=== PATIENT | male | born 1965 | race Hispanic/Latino ===

== ENCOUNTER 2024-04-11 13:24 | Inpatient (IN) | payer BC, OTHER, SELFPAY ==
[2024-04-11 14:33] LABS: #Basophils 0.04 10x3/uL (0.0-0.2); %Basophils 0.4 % (0.0-1.0); %Eosinophils 0.8 % (0.0-10.0); %Lymphocytes 15.2 % (21.0-51.0); %Monocytes 5.3 % (0.0-10.0); %Neutrophils 77.8 % (42.0-75.0); Hematocrit 46.1 % (42.0-52.0); Hemoglobin 15.7 g/dL (14.0-18.0); Mean Corpuscular HGB CONC 34.1 g/dL (32.0-36.0); Mean Corpuscular Hemoglobin 29.7 pg (27.0-31.0); Mean Corpuscular Volume 87.3 fL (78.0-98.0); Platelet Count 219 10x3/uL (130-400); Red Blood Cell (RBC) Count 5.28 mill/uL (4.70-6.10)
[2024-04-11 14:50] LABS: ALT (SGPT) 28 U/L (8-55); AST (SGOT) 22 U/L (5-34); Albumin 3.7 g/dL (3.5-5.0); Alkaline Phosphatase 72 U/L (40-110); Anion Gap 16 mmol/L (10-20); BUN (Urea Nitrogen) 24 mg/dL (8.4-25.7); Bilirubin, Total 0.7 mg/dL (0.2-1.2); Calc. Creatinine Clearance 0 mL/min (70-130); Calcium 9.3 mg/dL (7.8-10.44); Carbon Dioxide 25 mmol/L (22-29); Chloride 107 mmol/L (98-107); Estimated GFR 104; Glucose 170 mg/dL (70-105); Potassium 3.8 mmol/L (3.5-5.1); Protein, Total 6.7 g/dL (6.0-8.3); Sodium 144 mmol/L (136-145)
[2024-04-11 14:57] LABS: Troponin I Less than 0.010 ng/mL (< 0.028)
[2024-04-11 15:20] LABS: Bilirubin Negative (Negative); Blood, Urine 2+ (Negative); CAUTI Indications for Culture Alt mental st,lethar; Glucose, Urine (Dipstick) Normal (Negative); Ketone, Urine 80 mg/dL (Negative); Leukocyte Negative Leu/uL (Negative); Nitrite Negative (Negative); Protein, Urine (Dipstick) 10 mg/dL (Neg-Trace); Squamous Epithelial 0-3 HPF (0-3); pH, Urine 5.5 (5.0-9.0)
[2024-04-11 15:21] LABS: Clarity Cloudy (Clear)
[2024-04-11 15:22] LABS: Bacteria/HPF Rare-Few HPF (None Seen)
[2024-04-11 15:32] LABS: RBC/HPF 21-50 HPF (0-3)
[2024-04-11 15:33] LABS: Urine Culture Reflex Yes Yes
[2024-04-11] MEDS ORDERED: traMADol HCl 50 MG TAB PO PRN (16:02)
[2024-04-11] MEDS ORDERED: Ondansetron ODT 4 MG TAB PO PRN (16:02)
[2024-04-11 18:53] LABS: Hemoglobin A1c 5.7 % (4.0-6.0)
[2024-04-11 21:38] VITALS: BMI 25.9
[2024-04-11] MEDS: Acetaminophen 325 MG TAB PO SCH (22:27)
[2024-04-11] MEDS: Cefepime 2 GM in Sodium Chloride 0.9% 100 ML IVPB SCH (22:28)
[2024-04-11] MEDS: Tamsulosin HCl 0.4 MG CAP PO SCH (22:29)
[2024-04-11] MEDS: Atorvastatin Calcium 40 MG TAB PO SCH (22:29)
[2024-04-12] MEDS: Melatonin 3 MG TAB PO SCH (01:07)
[2024-04-12 05:09] LABS: #Basophils 0.05 10x3/uL (0.0-0.2); %Basophils 0.5 % (0.0-1.0); %Eosinophils 1.8 % (0.0-10.0); %Lymphocytes 27.4 % (21.0-51.0); %Monocytes 8.2 % (0.0-10.0); %Neutrophils 61.7 % (42.0-75.0); Hematocrit 43.2 % (42.0-52.0); Hemoglobin 14.6 g/dL (14.0-18.0); Mean Corpuscular HGB CONC 33.8 g/dL (32.0-36.0); Mean Corpuscular Hemoglobin 29.4 pg (27.0-31.0); Mean Corpuscular Volume 87.1 fL (78.0-98.0); Platelet Count 206 10x3/uL (130-400); RBC Distribution Width 11.9 % (11.5-14.5); Red Blood Cell (RBC) Count 4.96 mill/uL (4.70-6.10)
[2024-04-12 05:16] LABS: ALT (SGPT) 27 U/L (8-55); AST (SGOT) 23 U/L (5-34); Albumin 3.7 g/dL (3.5-5.0); Alkaline Phosphatase 64 U/L (40-110); Anion Gap 15 mmol/L (10-20); BUN (Urea Nitrogen) 20 mg/dL (8.4-25.7); Calc. Creatinine Clearance 128 mL/min (70-130); Calcium 9.4 mg/dL (7.8-10.44); Carbon Dioxide 23 mmol/L (22-29); Cardiac Risk 6.1 (Less than 4.5); Chloride 106 mmol/L (98-107); Cholesterol 188 mg/dl (< 200 Desired); Estimated GFR 107; Globulin 2.6 g/dL (2.4-3.5); Glucose 88 mg/dL (70-105); HDL Cholesterol 31 mg/dL (>60 Neg Risk); LDL Cholesterol, Calculated 138 mg/dL; Potassium 3.5 mmol/L (3.5-5.1); Protein, Total 6.3 g/dL (6.0-8.3); Sodium 140 mmol/L (136-145); Triglycerides 95 mg/dL (Less than 150)
[2024-04-12] MEDS: Enoxaparin 40 MG (0.4 mL) SYRINGE SC SCH (10:36)
[2024-04-12] MEDS: Escitalopram Oxalate 10 mg Tablet PO SCH (10:37)
[2024-04-12] MEDS: Aspirin 81 mg Enteric Coated Tablet PO SCH (10:38)
[2024-04-12 10:40] VITALS: BMI 25.9
[2024-04-12] MEDS: Sodium Chloride 0.9% 1,000 ML IV SCH (16:14)
[2024-04-12] MEDS: cefTRIAXone\\ROCEPHIN 1 GM in Sodium Chloride 0.9% 100 ML IVPB SCH (16:15)
[2024-04-12] MEDS ORDERED: Cefdinir 300 MG CAP PO SCH (21:00)
[2024-04-12] MEDS: Melatonin 3 MG TAB PO PRN (21:19)
[2024-04-12] MEDS: traZODone HCl 50 MG TAB PO SCH (23:53)
[2024-04-13 05:52] LABS: #Basophils 0.03 10x3/uL (0.0-0.2); %Basophils 0.5 % (0.0-1.0); %Eosinophils 2.1 % (0.0-10.0); %Monocytes 7.9 % (0.0-10.0); Hematocrit 37.3 % (42.0-52.0); Hemoglobin 12.9 g/dL (14.0-18.0); Mean Corpuscular HGB CONC 34.6 g/dL (32.0-36.0); Mean Corpuscular Hemoglobin 29.7 pg (27.0-31.0); Mean Corpuscular Volume 85.9 fL (78.0-98.0); Mean Platelet Volume 13.5 fL (7.4-10.4); Platelet Count 177 10x3/uL (130-400); RBC Distribution Width 11.9 % (11.5-14.5); Red Blood Cell (RBC) Count 4.34 mill/uL (4.70-6.10)
[2024-04-13 06:19] LABS: Anion Gap 8 mmol/L (10-20); BUN (Urea Nitrogen) 10 mg/dL (8.4-25.7); Calc. Creatinine Clearance 133 mL/min (70-130); Calcium 8.7 mg/dL (7.8-10.44); Carbon Dioxide 24 mmol/L (22-29); Chloride 110 mmol/L (98-107); Estimated GFR 108; Glucose 103 mg/dL (70-105); Magnesium 1.9 mg/dL (1.6-2.6); Potassium 3.4 mmol/L (3.5-5.1); Sodium 139 mmol/L (136-145)
[2024-04-13] MEDS: Hydrochlorothiazide 25 MG TAB PO SCH (09:03)
[2024-04-13] MEDS: Lisinopril 10 MG TAB PO SCH (09:04)
[2024-04-13] MEDS: Potassium Chloride 20 MEQ TAB PO SCH (12:20)
[2024-04-13] MEDS: Sodium Chloride 0.9% 1,000 ML IV SCH (14:35)
[2024-04-14] MEDS ORDERED: Lisinopril 10 MG TAB ONE (09:10)
[2024-04-14] MEDS ORDERED: Escitalopram Oxalate 10 mg Tablet ONE (09:10)
[2024-04-14] MEDS ORDERED: Aspirin 81 mg Enteric Coated Tablet ONE (09:10)
[2024-04-14] MEDS ORDERED: Hydrochlorothiazide 25 MG TAB ONE (09:10)
[2024-04-14] MEDS ORDERED: Acetaminophen 325 MG TAB ONE (09:10)
[2024-04-14] MEDS ORDERED: Enoxaparin 40 MG (0.4 mL) SYRINGE ONE (09:10)
[2024-04-14 10:44] LABS: Amphetamine Not Detected (NotDetected); Barbiturates Screen Not Detected (NotDetected); Benzodiazepine Screen Not Detected (NotDetected); Cocaine Metabolite Screen Not Detected (NotDetected); Methadone Not Detected (NotDetected); Methamphetamine Not Detected (NotDetected); Opiate Screen Not Detected (NotDetected); Oxycodone Screen Not Detected (NotDetected); Phencyclidine (PCP) Not Detected (NotDetected); THC/Cannabinoid Screen Not Detected (NotDetected); Tricyclic Screen Not Detected (NotDetected)
[2024-04-14 13:18] LABS: Anion Gap 11 mmol/L (10-20); BUN (Urea Nitrogen) 8 mg/dL (8.4-25.7); Calc. Creatinine Clearance 139 mL/min (70-130); Carbon Dioxide 25 mmol/L (22-29); Chloride 106 mmol/L (98-107); Estimated GFR 109; Glucose 100 mg/dL (70-105); Potassium 3.5 mmol/L (3.5-5.1); Sodium 138 mmol/L (136-145)
[2024-04-15] MEDS: QUEtiapine 25 MG TAB PO SCH (20:28)
[2024-04-16 13:10] VITALS: BP 129/82; TEMP 97.5
[2024-04-16] MEDS ORDERED: QUEtiapine 100 MG TAB PO SCH (21:00)
[2024-04-18] MEDS ORDERED: QUEtiapine 200 MG TAB PO SCH (21:00)
== END 2024-04-16 14:39 | disposition short-term general hospital (02) | DRG 885 ==
LOC: ERS 13:24 → EEVIPCON 13:24 → ERHOLD 15:45 → 2NO 19:40 → OBSVTOIN 04-12 12:12
PROVIDERS: ADMIT Internal Medicine; ATTEND Family Medicine
PROC: 4A00X4Z Measurement of Central Nervous Electrical Activity, External Approach (ICD-10-PCS; principal; 2024-04-12)
DX: F25.0 Schizoaffective disorder, bipolar type (principal); G93.41 Metabolic encephalopathy; R45.851 Suicidal ideations; I10 Essential (primary) hypertension; N40.0 Benign prostatic hyperplasia without lower urinary tract symptoms; I08.1 Rheumatic disorders of both mitral and tricuspid valves; G93.89 Other specified disorders of brain; R33.9 Retention of urine, unspecified; F32.A Depression, unspecified; Z79.899 Other long term (current) drug therapy
CPT/HCPCS: 36415; 51702; 70450; 70551; 71045; 80048; 80053; 80061; 80306; 81001; 83036; 83735; 84145; 84443; 84484; 85025; 87040; 87086; 93005; 93010; 93306; 94760; 95700; 95711; 95819; 96374; G0378; J0692; J0696; J1650; J3490; J7050